=== PATIENT | female | born 1970 | race Caucasian/White ===

== ENCOUNTER → 2016-12-14 | Outpatient (CLI) | payer BC ==
[~2016-12-14] MED LIST: AUGMENTIN PO; LOPID600 MG PO; LORATADINE PO; PRE; PROTONIX PO; TOPROL XL PO; ZOMIG ZMT5 MG/TAB PO; ZOMIG5 MG PO; [UNRECOGNIZED DRUG - OTHER]; [UNRECOGNIZED DRUG - OTHER]
--- NOTE | ~2016-12-14 | CR233 ---
[facility] A Service of [facility] RADIOLOGY TEXT RESULTS PATIENT: BARRY DELONG LOCATION: [facility] : [birth year] UNIT #: [id number] AGE: [address]: AJITH BELL MD SEX: F ORDER DR: [id number] [facility]. [place], [place] [address] [id number] O MR#: [id number] Acc #: [id number] NAME: BARRY DELOGN : 1970 SEX: F STUDY DATE/TIME: 12/14/2016 13:20 UNIT: [facility] ROOM: STUDY DESCRIPTION: CR Sinuses Paranasal Min 3 Vws Attending Physician: Ajith Bell M.D. Referring Physician: Ajith Bell M.D. Ordering Physician: Ajith Bell M.D. Primary Care Physician: Ajith Bell M.D. MEDICAL IMAGING REPORT This report is preliminary unless electronic signature is present EXAM Sinus series, 12/14/2016 13:20 hours HISTORY 46-year-old woman with 4-day history of right eye pain and sinus pain with swelling. COMPARISON None FINDINGS AP, Hollis and lateral views of the sinuses were performed. There is a well aerated and clear left frontal sinus. The right frontal sinus appears aplastic. The ethmoid air cells are clear. No fluid is seen in the maxillary sinuses. Nasal septum bows mildly to the right. No orbital rim fracture seen. There is moderate mucosal thickening along the inferior turbinates. IMPRESSION 1. Patient has a hypoplastic or aplastic right frontal sinus. The sinuses are otherwise clear. 2. Mild rightward nasal septal deviation with moderate mucosal thickening along the inferior turbinates which could indicate allergic or infectious rhinitis. 3. Orbital rims are intact. Dictated by... Veronique Freitas M.D. THIS IS AN ELECTRONICALLY VERIFIED REPORT Veronique Freitas M.D. at 12/14/2016 6:28 PM ADAM/pedrito [facility] A Service of [facility] RADIOLOGY TEXT RESULTS PATIENT: BARRY DELONG LOCATION: [facility] #: [id number] : [birth year] UNIT #: [id number] AGE: [address]: AJITH BELL MD SEX: F ORDER DR: TD: 12/14/2016 14:49 JOB #: [id number] MEDICAL IMAGING REPORT Page 1 of 1 COPY
== END | disposition home or self-care (01) ==
LOC: CRAD 13:06
DX: H57.11 Ocular pain, right eye (principal); J34.2 Deviated nasal septum; J34.89 Other specified disorders of nose and nasal sinuses
CPT/HCPCS: 70220